=== PATIENT | male | born 1935 | race Caucasian/White ===

== ENCOUNTER 2017-12-14 05:57 | Inpatient (IN) | payer OTHER, SELFPAY ==
[2017-11-30 08:39] VITALS: BMI 24.7
[2017-12-14] VITALS (16 sets, daily range): BP systolic 111–157; BP diastolic 57–82; PULSE 58–91; RESP 10–20; TEMP 35.7–37; O2SAT 90–97; BMI 23.8
--- NOTE | 2017-12-14 | DI.RAD.S_ITS ---
PROCEDURE: XR HIP W PEL IF DONE RT 2V INDICATIONS: total right hip TECHNIQUE: AP pelvis and lateral view of the right hip acquired. COMPARISON: [facility], JULIA, XR HIP W PEL IF DONE RT 2V, 12/14/2017, 8:57. FINDINGS: Bones: Patient is status post right hip arthroplasty, with hardware components in expected positions. The hip joint appears congruent. The visualized bony structures appear intact. Moderate left hip degeneration. Soft tissues: Overlying postoperative changes are noted. Scattered vascular calcifications. No suspicious soft tissue densities. IMPRESSION: Expected postoperative appearance. Dictated by: Celso Jeffries M.D. on 12/14/2017 at 12:59 Approved by: Celso Jeffries M.D. on 12/14/2017 at 13:01
--- NOTE | 2017-12-14 | DI.ECHO.S_ITS ---
[facility]---------+ [facility] +---------+ : : [address] : [place] : : : : [id number] : : : : Phone: [phone]+ Echocardiogram Report + + :Name: SHELTON MANCERA Study Date: 12/15/2017 Height: 70 in : :[facility] Exam Location: IS Weight: 166 lb : : Gender: Male BSA: 1.9 m2 : :: 1935 Age: 82 yrs BP: 104/50 mmHg: :Reason For Study: Chest Pain : :Ordering Physician: Michael : :Hospitalist Performed By: Vannessa Meléndez : :Referring: CYNTHIA TOLEDO : + + Interpretation Summary 1) Normal left ventricular thickness, size, and systolic function (EF 55-60%). 2) The anterolateral wall, the inferior wall, and the inferolateral wall are hypokinetic. 3) Grossly, normal right ventricular size and function. 4) There is moderate posteriorly directed mitral regurgitation. 5) The right ventricular systolic pressure is estimated at 38 mmHg assuming a right atrial pressure of 3 mm Hg. 6) No prior Echo available for comparison. Procedure: A two-dimensional transthoracic echocardiogram with color flow and Doppler was performed. The study quality was technically adequate. There is no prior echocardiogram noted for this patient. The patient was unable to be repositioned due to recent hip surgery and pain. Most of the acoustic windows were suboptimal, but the best imaging was obtained from the parasternal window. The patient was in normal sinus rhythm during the exam. Left Ventricle: The left ventricle is normal in size. Left ventricular wall thickness is normal. The ejection fraction is estimated to be 55-60%. Left ventricular systolic function is normal. The anterolateral wall, the inferior wall, and the inferolateral wall are hypokinetic. Right Ventricle: The right ventricle is not well visualized. The right ventricle grossly appears normal in size with probable normal systolic function. Atria: The left atrium is moderately dilated. Right atrium not well visualized. The interatrial septum is intact with no evidence for an atrial septal defect. Mitral Valve: The mitral valve leaflets appear borderline thickened, but open well. There is mild mitral annular calcification. There is moderate mitral regurgitation. The mitral regurgitant jet is eccentrically directed. There are multiple regurgitant jets present. Aortic Valve: The aortic valve is moderately calcified. There is no aortic valve stenosis. No aortic regurgitation is present. Tricuspid Valve: The tricuspid valve is normal in structure and function. There is mild tricuspid regurgitation. The right ventricular systolic pressure is estimated at 38 mmHg assuming a right atrial pressure of 3 mm Hg. Pulmonic Valve: The pulmonic valve is not well seen, but is grossly normal. There is a trace or physiologic amount of pulmonic regurgitation. Great Vessels: The ascending aorta could not be visualized. The IVC is of normal diameter and collapses greater than 50% with a sniff. This suggests a low right atrial pressure of 3 mm Hg. Pericardium/ Pleura There is no pericardial effusion. There is no pleural effusion. MMode/2D Measurements & Calculations LVIDd: 4.8 cm LVOT diam: 2.3 cm LVIDs: 3.3 cm FS: 32.2 % IVSd: 0.95 cm LVPWd: 1.1 cm LV frances. diameter/BSA (cm/m^2): 2.5 LV sys. diameter/BSA (cm/m^2): 1.7 LA dimension: 5.9 cm IVC diam: 1.4 cm LA A2 area: 24.5 cm2 LA A4 area: 23.6 cm2 LA length (vol): 5.6 cm LA vol: 88.2 ml LA vol index: 45.7 ml/m2 Doppler Measurements & Calculations Ao V2 max: 167.4 cm/sec LVOT Max Panda: 92.1 cm/sec Ao V2 mean: 112.8 cm/sec LV V1 max P.4 mmHg Ao max P.2 mmHg LV V1 VTI: 17.8 cm Ao mean P.0 mmHg JENNIFER(I,D): 2.3 cm2 Ao V2 VTI: 33.2 cm JENNIFER(V,D): 2.4 cm2 sev ratio: 0.54 JENNIFER indexed to BSA (cm^2/m^2): 1.2 MV E max panda: 115.4 cm/sec TR max panda: 296.4 cm/sec MV A max panda: 49.4 cm/sec TR max P.1 mmHg MV E/A: 2.3 PA V2 max: 84.8 cm/sec Med Peak E' Panda: 5.9 cm/sec PA V2 mean: 59.1 cm/sec E/E' med: 19.6 PA mean P.6 mmHg Lat Peak E' Panda: 11.1 cm/sec PA pr(Accel): 19.1 mmHg E/E' lat: 10.4 E/e' average: 15.0 MV dec time: 0.16 sec Reading Physician:12:16 PM
--- NOTE | 2017-12-14 06:00 | DI.RAD.S_ITS ---
PROCEDURE: XR HIP W PEL IF DONE RT 2V INDICATIONS: intraoperative right hip TECHNIQUE: 2 view(s) of the hip acquired. COMPARISON: [facility], CR, XR HIP W PEL IF DONE RT 2V, 12/14/2017, 12:29. FINDINGS: Bones: Patient is status post a right hip arthroplasty, with hardware components in expected positions. The hip joint appears congruent. The visualized bony structures appear intact. Soft tissues: Overlying postoperative changes are noted. No suspicious soft tissue densities. IMPRESSION: Normal alignment of the preparation for closure during the process of right total hip arthroplasty. Dictated by: Cristhian Eid M.D. on 12/14/2017 at 13:04 Approved by: Cristhian Eid M.D. on 12/14/2017 at 13:05
[2017-12-14] MEDS: LACTATED RINGERS 1,000 ML 42 ML IV ×2 (06:40→11:04)
[2017-12-14] MEDS: ACETAMINOPHEN 325 MG TABLET 975 MG PO ×3 (06:51→20:34)
[2017-12-14] MEDS: PREGABALIN 75 MG CAPSULE PO (06:51)
[2017-12-14] MEDS: CELECOXIB 200 MG CAPSULE PO (06:51)
[2017-12-14] MEDS: VANCOMYCIN 1,000 MG/200 ML FROZ.PIGGY 200 MG IV (07:07)
--- NOTE | 2017-12-14 07:34 | PM.PREOP ---
Pre-operative Note Interval Note Pre-op Check: Yes History & Physical Reviewed by Physician and Yes Exam Performed Changes: No
--- NOTE | 2017-12-14 07:37 | P.OP_ITS ---
Operative Date/Time/Diagnoses Date of procedure: 12/14/17 Time of procedure: 07:59 Pre-op diagnosis: right hip oa Post-op diagnosis: same Procedure & Clinicians Procedure: right total hip Replacement anterior Same procedure as scheduled: Yes Indications: The patient has had progressively worsening right hip pain with radiographic changes consistent with arthritis. Non-operative management has failed and the patient has requested total hip replacement. The risks, benefits and alternatives to surgery were discussed with the patient prior to proceeding. Risks discussed included, but were not limited to, failure to relieve pain, leg length discrepancy, dislocation, stiffness, infection, nerve damage, deep venous thrombosis, pulmonary embolism, stroke, coma, heart attack, permanent paralysis and , as well as the potential need for eventual revision of the prosthetic. Surgeon: Kelsie Nieto Sleeve Tailor: Cley Moss Anesthesia Type: General and Spinal Operative Notes Findings: severe right hip osteoarthritis Closure Type: primary Specimen(s): none sent Implants & Drains: nieto and nephew R3 56, 25 mm single screw, neutral poly, anthology size 7 standard offset, +0 Estimated Blood Loss (mL): 300 Blood products transfused: none Procedure in detail: The patient was brought to the operating room. Patient was carefully positioned in the supine position. Time-out was performed and antibiotics were given. Anesthesia was induced. She was positioned in the on the table in order to allow hyperextension of the hip. Bilateral lower extremities were prepped and draped in a standard sterile fashion. An anterior incision was made 1 fingerbreadth lateral to the anterior superior iliac spine and extended distally towards the greater trochanter. Dissection was carried out through skin and subcutaneous tissues. The skin and subcutaneous tissues were carefully injected with Marcaine with epi. Superficial hemostasis was achieved. The fascia over the tensor fascia ekta was defined and incised with a knife. Two Allis clamps were used to grasp the fascia. Tensor fascia ekta was retracted laterally. A gelpi retractor was placed. Dissection was carried out down along the neck. The circumflex vessels were carefully identified and cauterized with the Aqua Mantis. There was good visualization of the femoral neck. A Cobra was placed superior to the neck and the gluteus fibers were carefully stripped from that superior aspect of the capsule. A 2nd retractor was placed along the inferior aspect of the neck. The rectus insertion along the capsule was released. A 3rd retractor that was then gently placed over the rim of the acetabulum under the rectus. Capsule was carefully incised and released from the intertrochanteric line circumferentially superior to the mid sagittal line and inferiorly to the mid sagittal line until the lesser trochanter was palpable. A tag stitch was placed both in the superior and inferior limb of the capsular insertion. Along the acetabulum capsule was also released up to the mid sagittal 12:00 position. Portion of the labrum was resected. A saw was used to perform an osteotomy at the level of the intertrochanteric line and the junction of the superior femoral neck leaving approximately 1 finger breath of residual inferior neck above the lesser trochanter. A 2nd cut was made along the femoral neck at the base of the head and a napkin ring of neck was removed. Corkscrew was placed in the femoral head and the head was removed without difficulty. Retractors were then repositioned around the acetabulum. Residual labrum was resected and additional osteophytes were removed. A Reamer that was 4 mm below the templated size was placed by hand in the acetabulum and it was reamed to centralize the acetabulum. Was then reamed up to 1 under the templated size fluoroscopy was brought in to confirm the position of the reaming and depth of reaming. I reamed 1 under the anticipated size and touch the rim with line to line reaming. A trial cup was placed and noted that it was appropriately sized and fluoroscopy confirmed position and depth. The component was open and inserted without difficulty fluoroscopic imaging was used to confirm that the cup had been adequately seated and was well positioned. A single screw was used to further stabilize the cup. Neutral poly liner was placed. The cup was tested and noted to be stable. Attention was then directed to the femur. The femur was gently hyperextended additional capsular release was performed as needed in order to allow adequate visualization of the proximal femur with elevation of the femur. Patient was placed in a hyperextended slightly abducted position with maximum external rotation. Box osteotome was used to check for any residual neck as well as sclerotic bone along the trochanter. Rugby pepper was placed in the femur. Additional broaching was performed. Canal finer was used to determine the alignment of the canal and position. Size 1 broach was placed. The canal was then appropriately broached up to the templated size as long as there was adequate stability of the broach and serial advancement of the broach without excessive impingement. Specific attention was directed at avoiding varus attempting to direct the distal aspect of the approach more anteriorly and avoiding excessive anteversion. Trial reduction showed acceptable range of motion, good stability, no posterior impingement, christianity of leg length and appropriate lateral shuck. I also hyperflexed the hip and checked that there was no impingement anteriorly and there was good stability with flexion, abduction and internal rotation. Final neutral poly was placed without difficulty. Marcaine and Exparel were injected. The stem was placed without difficulty. Repeat trial reduction and x -ray showed acceptable overall position, length, and no evidence of the femoral fracture. Final head was placed. Wound was meticulously irrigated with normal saline. The hip was reduced and additional Exparel and Marcaine were injected. The capsule was closed with interrupted black braided nylon. The fascia of the tensor was closed with interrupted and running Vicryl. No drain was placed. Any tensor fascia ekta muscle that appeared to be contused or injured which was a minimal amount was carefully resected. Capsule around the tensor was injected with Exparel and Marcaine. The skin was closed with barbed stitches for the subcutaneous tissue and skin. We also used surgical glue. The wound was dressed sterilely. Brief Betadine soak was also used and was meticulously irrigated with normal saline. Patient was transferred to recovery room in satisfactory condition. Complications: none Condition: stable Disposition: Acute Care Plan for aftercare: The patient will be maintained on a standard total hip replacement protocol with weight bearing as tolerated and anterior hip precautions. The patient will receive aspirin and sequential compression devices for DVT prophylaxis. The patient will be discharged home when safe for the home environment.
[2017-12-14] MEDS: CEFAZOLIN 2 GM/100 ML FROZ.PIGGY IV ×2 (08:30→16:05)
[2017-12-14] MEDS: LIDOCAINE 1% W/EPI INJ 1 ML SUBCUT (08:52)
--- NOTE | 2017-12-14 09:08 | SUR.OPER ---
Supine, head on pillow, torso on pink pad positioner. Iliac crest at flex of foot end of table. Gel roll under operative hip. Both arms secured on arm boards <90 degrees abduction.
[2017-12-14] MEDS: BUPIVACAINE 0.25% W/ EPI VIAL 50 ML INJ (09:17)
[2017-12-14] MEDS: BUPIVACAINE LIPOSOME 266 MG/20 ML VIAL INJ (09:18)
[2017-12-14] MEDS: POVIDONE-IODINE 15 ML, SODIUM CHLORIDE 0.9% 250 ML TOP (09:18)
--- NOTE | 2017-12-14 12:18 | SUR.PHASEI ---
oral airway out at 1216
[2017-12-14] MEDS: LACTATED RINGERS 1,000 ML 125 ML IV (13:36)
--- NOTE | 2017-12-14 14:11 | PC.NURSE ---
Pt to floor after surgery. Denies pain in hip area, drinking apple juice from carton. Began to experience chest pain, pressure at 7/10. Appeared in distress but no diaphoresis. O2 sats = 88% on RA, then 94% on 2L. Surgeon and MD contacted. EKG done. Pt began to feel better after about 45 minutes. Spouse present. Now plan to give GI Cocktail. Pt now calm.
[2017-12-14] MEDS: MAG HYDROX/ALUMINUM/SIMETH SUS 20 ML, LIDOCAINE VISCOUS 2% 15 ML PO ×2 (14:22→22:49)
[2017-12-14 15:05] LABS: Creatine Kinase 186 U/L (55-170)
[2017-12-14 15:16] LABS: Troponin I 0.039 ng/mL (0.01-0.034)
[2017-12-14 15:20] LABS: Creatine Kinase MB 1.82 ng/mL (<2.37)
--- NOTE | 2017-12-14 15:55 | PT.IIE ---
Current Diagnoses Unilateral primary osteoarthritis, right hip (12/14/17) Surgery Performed Operation Date: 12/14/17 07:45 Actual Procedures p Total Hip Arthroplasty/Anterior Approach(Right) - Kelsie Mejia MD Surgical History (Last Updated 11/30/17 @ 09:13 by Hyun Sutton, RN) History of vasectomy (Acute) Hx of hand surgery (Acute) Hx of tonsillectomy (Acute) Medical History (Last Updated 11/30/17 @ 09:13 by Hyun Sutton RN) BCC (basal cell carcinoma of skin) (Acute) Borderline hypertension (Acute) Easy bruisability (Acute) Fecal incontinence (Acute) Melanoma in situ of back (Acute) Physical Therapy Inpatient Evaluation/Re-Eval M1 PT/OT-IP Prior Functional Status Start: 12/14/17 15:59 Freq: NEEDED Status: Active Protocol: Document 12/14/17 15:55 MDD (Rec: 12/14/17 16:10 MDD [id number]) Medical Review Prior Functional Status Medical History Reviewed Yes Communication normal Mobility and Gait independent with no AD Activities of Daily Living and IADL's independent Social History Household Members spouse Living Arrangements House Number of Floors (Floors) One Floor Number of Stairs To Enter/Railing? 2 steps to enter (no railing but he can hold onto the side of the house). 2 additional stairs down to get to family room. Home Environment Standard Height Toilet Home Equipment Front Wheel Walker Straight Cane Raised Toilet Seat Without Armrests Shower Seat with Backrest Employment Status Self-Employed Additional Social History Comment Pt works as a salesman and travels via car on the [facility] [place]. He lives with his , Yancy, on [address] . M2 PT-IP Current Condition Start: 12/14/17 15:59 Freq: NEEDED Status: Active Protocol: Document 12/14/17 15:55 MDD (Rec: 12/14/17 16:10 MDD [id number]) Physical Therapy Current Condition Current Condition Evaluation Date 12/14/17 Treatment Diagnosis s/p R ANNETTE Onset Date 12/14/17 Precautions Anterior Hip Precautions No Hip Extension No Hip External Rotation Weight Bearing Status Weight Bearing Status Weight Bear as Tolerated M3 PT-IP Subjective Start: 12/14/17 15:59 Freq: NEEDED Status: Active Protocol: Document 12/14/17 15:55 MDD (Rec: 12/14/17 16:10 [facility] [id number]) Subjective Physical Therapy Visit Type Type Initial Evaluation Visit Start Time 15:15 Visit Stop Time 15:55 Total Visit Minutes 40 Notes supine BP: 127/68 mm Hg seated EOB:131/63 mm Hg after activity: 133/77 mm Hg Pt on 3L/min supplemental O2 at rest, sats at 97%. Removed O2 with no decrease in oxygen saturation. No drop with activity on room air. Physical Therapy Visit Comments Patient Comments Pt reports feeling a bit worried earlier with his chest pain, but notes it feels much better now. Therapy Pain Assessment Pain When Pain Assessed At Rest Pain Present Pain Present Pain Reported Location Chest Intensity 2 Scale Used Numeric (1 - 10) Description Dull Right Hip Intensity 0 M4 PT-IP Mobility and Gait Start: 12/14/17 15:59 Freq: NEEDED Status: Active Protocol: Document 12/14/17 15:55 MDD (Rec: 12/14/17 16:10 [facility] [id number]) PT-Bed Mobility Assessment Rolling Type of Rolling Roll to Right Level of Assist Standby Assistance Supine to Sit Supine to Sit Standby Assistance Scooting Scooting to Edge of Bed Independent PT-Transfer Assessment Sit to and From Stand Sit to and from Stand Contact Guard Assistance Equipment Transfer Assistive Device Gait Belt Front Wheeled Walker Transfers Transfer Destination Chair Transfer Ability Level of Assist Standby Assistance Gait Assessment Gait Gait Assistance Required: Standby Assistance Contact Guard Assist Distance (Feet) (feet) 90 Able to Maintain Weight Bearing Status Yes During Gait Assistive Devices Assistive Device Gait Belt Front Wheeled Walker Gait Deviations General Gait Pattern Antalgic Decreased Stride Length Factors Limiting Gait Function Factors Limiting Gait Function Limited Range of Motion Pain Comments Gait Comments Pt demonstrates safety with gait using FWW, requires small cues for maintaining hip precautions (ie smaller steps with L LE and avoiding R hip ER while turning). PT-Balance Assessment Sitting Balance and Reactions Static Sitting Balance Ability Normal Dynamic Sitting Balance Ability Normal Standing Balance and Reactions Static Standing Balance Ability Good Dynamic Standing Balance Ability Good M5 PT-IP Objective Assessments Start: 12/14/17 15:59 Freq: NEEDED Status: Active Protocol: Document 12/14/17 15:55 MDD (Rec: 12/14/17 16:10 [facility] [id number]) Orientation Orientation/Cognition Level of Alertness Alert Orientation Name Age Birthday Month Date Year Day of Week Place Situation Language Function Ability No Deficits Noted Safety Awareness Understands Safety Issues Memory Description No Deficits Noted Gross Range of Motion Lower Extremity ROM Assessment Within Functional Limits Strength Lower Extremity Strength Assessment Within Functional Limits Coordination Assessment Gross Coordination Gross Coordination WNL Sensation Assessment Sensation Gross Sensation WNL Light Touch Intact M6 PT-IP Treatment Start: 12/14/17 15:59 Freq: NEEDED Status: Active Protocol: Document 12/14/17 15:55 MDD (Rec: 12/14/17 16:10 MDD [id number]) Physical Therapy Treatment Education Education Provided Precautions Weight Bearing Status Post-Op Packet Safety M7 PT-IP Assessment and Plan Start: 12/14/17 15:59 Freq: NEEDED Status: Active Protocol: Document 12/14/17 15:55 MDD (Rec: 12/14/17 16:10 MDD [id number]) PT Summary Assessment and Plan Potential Rehabilitation Potential Excellent Status of Condition at Evaluation Stable Summary Impairments ROM Bed Mobility Transfers Gait Activity Tolerance Progress Towards Goals Progressing Toward Goals Assessment Summary On examination, pt demonstrates excellent LE strength. He was able to perform bed mobility with SBA and transfers with CGA using his FWW. Pt will need to practice stair training and continue with bed mobility and gait training prior to d/c home. Goals Bed Mobility Goal Independent Transfer Goal Independent Gait Goal Independent Front Wheel Walker Gait Distance 100 Other Goals Ascend/descend 2 steps with no handrail (single point cane) Days to Meet Goals 2 Frequency of Treatment Frequency Of Treatment Twice a Day Treatment Plan Physical Therapy Treatment Plan Bed Mobility Training Transfer Training Gait Training Therapeutic Exercise Post Op Education Recommendations To Nursing Amount of Assist Needed 1 Person Assist Discharge Recommendations PT Discharge Recommendations Home with Assistance
--- NOTE | 2017-12-14 16:10 | PC.NURSE ---
Pt awake and alert in bed. P.T. in to mobilize pt and pt in agreement. Ambulatory on room air in hallway with P.T. using walker. Now returns to recliner per P.T. Continuous pulse oximeter in place. Room air 94%. Pt denies chest pain. No chest pain. States sensation to throat returning s/p GI cocktail. Denies nausea. Denies pain. Palpable posterior tibialis pulses x 2. Equally warm and pink extremities. Ice to right hip. Aquacel dressing to right anterior hip is dry and intact. Dr. Barnes checks in by telephone and Dr. Mejia in to see patient and now R.T. in to see patient.
[2017-12-14 17:52] LABS: Creatine Kinase 238 U/L (55-170)
[2017-12-14 18:08] LABS: CKMB % Relative Index 2.4 % (1.5-5.0); Creatine Kinase MB 5.73 ng/mL (<2.37)
[2017-12-14 18:54] LABS: Troponin I 0.297 ng/mL (0.01-0.034)
--- NOTE | 2017-12-14 19:07 | PC.NURSE ---
Mahad Duvall in lab notifies this adjusto writer operator by telephone of pt's critical troponin at this hour 0.297. Pt remains up in recliner pain free alert and conversant. Dr. Wall in house and notified immediately. to enter orders and requested this adjusto writer operator notify Dr. Mejia via telephone. Tele placed as per MD directive.
--- NOTE | 2017-12-14 19:08 | PM.CN ---
History of Present Illness Date Patient Seen: 12/14/17 Time Patient Seen: 19:09 Chief complaint: [id number] Reason for consult: Patient experiencing chest pain and perioperative setting Requesting provider: Kelsie Mejia Narrative: Patient is a very pleasant 82 years of age male who had chest pain returning from surgical procedure. The initial troponin level was negative. The initial EKG was nonspecific. A GI cocktail was given to the patient at that time and he appeared to have sufficient relief. I requested though few hours later by repeat troponin to be done. Whereas the 1st troponin was 0.039 the 2nd troponin was 0.297. In view of such I requested patient to be placed on telemetry. Patient already on aspirin based product. I added on metoprolol tartrate at 25 mg b.i.d. As an additional cardioprotective measure. Since patient had response to the GI cocktail, or sort appeared, I also added on Protonix 40 mg b.i.d.. Please note the 2nd most common cause of chest pain once cardiac causes were ruled out would be gastrointestinal with GERD and esophageal spasm. I have requested for repeat troponin level to be done in a.m. with a repeat ECG in a.m.. I also requested a echocardiogram 2D to be done tomorrow in a.m.. Echo can look for regional wall motion abnormality and suggest there is Ongoing Regional ischemic disease. Patient to be monitored carefully through the night. PFSH Medical History BCC (basal cell carcinoma of skin) (Acute) Borderline hypertension (Acute) Easy bruisability (Acute) Fecal incontinence (Acute) Melanoma in situ of back (Acute) Surgical History History of vasectomy (Acute) Hx of hand surgery (Acute) Hx of tonsillectomy (Acute) Social History household members: spouse Smoking Status: Former smoker alcohol intake: current Meds Home Medications Medication Instructions Recorded Confirmed Type acetaminophen [Tylenol Arthritis 650 mg PO Q8H PRN 11/30/17 12/14/17 History Pain] aspirin 81 mg PO DAILY 11/30/17 12/14/17 History ascorbic acid (vitamin C) [Vitamin 500 mg PO DAILY 12/14/17 12/14/17 History C] multivitamin with minerals 1 tab PO DAILY 12/14/17 12/14/17 History [Multiple Vitamin-Minerals] omega 0-ivb-van-fish oil [Fish Oil] 1,000 mg PO DAILY 12/14/17 12/14/17 History Allergies Allergy/AdvReac Type Severity Reaction Status Date / Time No Known Drug Allergies Allergy Verified 12/14/17 07:30 Exam Vital Signs (past 8 hours): - 12/14/17 12:02 12/14/17 12:07 12/14/17 12:17 Temperature 97.0 F L Pulse Rate 63 61 65 Respiratory Rate 13 12 10 L Blood Pressure 118/66 115/63 115/58 L Pulse Oximetry 95 94 95 12/14/17 12:22 12/14/17 12:42 12/14/17 12:55 Temperature 97.1 F L 98.4 F Pulse Rate 67 74 73 Respiratory Rate 12 10 L 16 Blood Pressure 117/58 L 127/72 112/66 Pulse Oximetry 94 93 90 L 12/14/17 13:55 12/14/17 14:55 12/14/17 15:55 Temperature 98.1 F 98.6 F 96.3 F L Pulse Rate 62 63 60 Respiratory Rate 16 18 16 Blood Pressure 131/75 132/72 133/77 Pulse Oximetry 95 96 95 Oxygen Delivery Method Room Air Objective Labs Labs: Laboratory Results - last 24 hr 12/14/17 12/14/17 14:40 17:10 Total Creatine Kinase 186 H 238 H CK-MB (CK-2) 1.82 5.73 H D CK-MB (CK-2) Rel Index 1.0 L 2.4 Troponin I 0.039 H 0.297 H*
--- NOTE | 2017-12-14 19:19 | PC.NURSE ---
Discussed with Dr. Mejia via telephone pt's bump in troponin this evening. Also informed Dr. Mejia informed Dr. Wall of this lab value as well and Dr. Wall to implore cardioprotective measures. These were reviewed with Dr. Mejia.
--- NOTE | 2017-12-14 19:42 | PC.NURSE ---
Per Dr. Wall, no activity restrictions with pt's elevated troponin. Pt into bathroom to attempt void. Tele in place and ICU informed.
--- NOTE | 2017-12-14 20:18 | PC.NURSE ---
Bladder scanned for 812 cc's and pt unable to void after ambulation and sitting on toilet. I and O cathed per Mallory davis RN.
--- NOTE | 2017-12-14 20:24 | PC.NURSE ---
When asked directly, pt does report periodic short-lived chest pain, but currently denies any and all discomfort. Requested pt alert staff when chest pain occurs. Pt verbalizes understanding.
[2017-12-14] MEDS: METOPROLOL 25 MG TABLET PO (20:34)
[2017-12-14] MEDS: PANTOPRAZOLE 40 MG TABLET PO (20:34)
[2017-12-14] MEDS: ASPIRIN EC 81 MG TABLET PO (20:34)
[2017-12-14] MEDS: DOCUSATE 100 MG CAPSULE PO (20:34)
[2017-12-14] MEDS: NITROGLYCERIN 0.4 MG SL TAB SL (21:00)
[2017-12-14 21:32] LABS: Creatine Kinase 376 U/L (55-170)
--- NOTE | 2017-12-14 21:34 | PC.NURSE ---
Pt took hs meds and ate sandwich as per request. Reports to REGIONAL MERCHANDISING MANAGER now experiencing chest pain. Vital signs taken and R.T. in to perform stat EKG. This underwriter solicitation director entered pt's room and pt is clutching chest. Dr. Wall summoned to bedside and reviewing pt's EKG. Administered 0.4 SL nitro as per MD's verbal order. Lab in to draw stat troponin and CK. Pt reports immediate improvement in chest pain following nitro. EKG repeated as per MD's verbal orders. Pt now reports pain entirely absent. 02 sats 88% on room air. This was called to the attention of R.Flora.Radha and Dr. Wall by this underwriter solicitation director. Placed pt on 02 @ 3L per nc and sats to 93%. Pt remains awake, alert and chest pain free.
[2017-12-14 21:47] LABS: CKMB % Relative Index 4.4 % (1.5-5.0)
--- NOTE | 2017-12-14 22:02 | PC.NURSE ---
Pt's troponin now reported as 1.180. Dr. Mejia was contacted by telephone with this value as well as pt's earlier c/o chest pain with Dr. Wall attending @ the bedside. Dr. Mejia was informed of Dr. Trevizo's impressions/recommendations of posterior RI and recommendation for heparin drip with eventual (not emergent) transfer to [facility] for angiogram. Dr. Mejia provided with Dr. Trevizo's (client representative) phone number and states will contact directly. Pt transferred to ICU upon [facility] Snow's recommendation for careful monitoring. Inquired of Dr. Mejia if would like Dr. Walker (hospitalist overnight) notified and Dr. Mejia to make decision and let this mortgage or loan underwriter know how to proceed.
--- NOTE | 2017-12-14 22:22 | PC.NURSE ---
Pt now in ICU and report given to SANDRA Adamson. Pt's spouse, Yancy, was notified by telephone of pt's change in status and transfer to ICU. Dr. Mejia returned this casualty underwriter's call and states spoke with Dr. Trevizo (pt's previous EKG's were faxed to Dr. Trevizo per Dr. Wall after Dr. Wall's phone conversation with this leak gang supervisor). Per Dr. Mejia, pt to have 5000 units subcutanous heparin now and dc nitropaste. Other orders written and being entered by rose grading supervisor, Diane, at this time. Per Dr. Roberto MD to contact Dr. Walker directly (hospitalist overnight) and Dr. Walker's cell phone number provided to Dr. Mejia.
[2017-12-14] MEDS: HEPARIN 5,000 UNIT/ML VIAL 5000 UNIT SUBCUT (22:47)
--- NOTE | 2017-12-14 22:55 | PC.NURSE ---
Addendum entered by Snow Duhnam R.N. 12/14/17 23:04: O2 sats down to 90% on 3 L. O2 increased to 4L. One 0.4 mg ntg given at 22:42. 22:53- O2 sats 87%. O2 increased to 4L. RLL crackles. Dim bilateral bases. Pt denies SOB. Chest pain is resolved. Original Note: transfer to ICU note pt received from Acute care. Pt on 3L O2. Pt had episode of chest pain midsternal to slightly left of sternum, nonradiating, no SOB, no dizziness. Pt rated pain 3/10
[2017-12-15] MEDS: CEFAZOLIN 2 GM/100 ML FROZ.PIGGY IV (00:01)
[2017-12-15 00:37] VITALS: BP 111/57; PULSE 73; RESP 25; TEMP 35.9; O2SAT 96
[2017-12-15 00:46] LABS: Creatine Kinase 398 U/L (55-170)
[2017-12-15 01:36] LABS: CKMB % Relative Index 6.1 % (1.5-5.0)
[2017-12-15] MEDS: ONDANSETRON 4 MG/2 ML INJ IV ×2 (01:43→04:55)
[2017-12-15 04:30] VITALS: BP 129/70; PULSE 76; RESP 17; TEMP 36.4; O2SAT 96
[2017-12-15] MEDS: PANTOPRAZOLE 40 MG TABLET PO (04:55)
[2017-12-15 07:56] VITALS: BP 104/61; PULSE 64; RESP 17; TEMP 36.7; O2SAT 92
[2017-12-15 08:38] LABS: Hematocrit 41.9 % (41-53); Hemoglobin 13.9 g/dL (13.5-17.5)
[2017-12-15 08:51] LABS: Creatine Kinase 620 U/L (55-170)
[2017-12-15 09:00] VITALS: O2SAT 94
[2017-12-15 09:16] LABS: CKMB % Relative Index 8.6 % (1.5-5.0)
--- NOTE | 2017-12-15 09:18 | P.PN_ITS ---
Subjective Date Patient Seen: 12/15/17 Interval history: Patient seen at bedside with Dr. Mejia status post right anterior total hip replacement. Patient is postop day 1. He had chest pain with ST elevations on EKG postoperatively and has been in the ICU for monitoring. Dr. Walker from [facility] cardiology was called last night regarding this patient and his recommendation was to monitor in our hospital and not transfer as an patient is not able to be properly anticoagulated for an angiogram at this time. Hospitalist today recommends transferring for monitoring at a hospital with the ability to do an angiogram. He is looking at transferring the patient to [facility] in [place] as the patient has his PCP in [place]. He denies any chest pain at this time. He denies any hip pain or calf pain. He has been walking with the aid of a walker. Exam Vital Signs (past 8 hours): - 12/15/17 04:30 12/15/17 07:56 Temperature 97.6 F 98.0 F Pulse Rate 76 64 Respiratory Rate 17 17 Blood Pressure 129/70 104/61 Pulse Oximetry 96 92 Oxygen Delivery Method Nasal Cannula Oxygen Flow Rate 4 Narrative Exam Narrative: Patient is well-developed well-nourished in no acute distress. Patient is alert and oriented x3. Examination right hip incision is clean dry and intact with an Aquacel dressing in place. No noticeable discharge on the dressing. Minimal swelling around the hip. Range of motion of the knee and ankle are fully intact. Calf is soft and compressible. Objective Labs Result Diagrams: 12/15/17 08:07 Labs: Laboratory Results - last 24 hr 12/14/17 12/14/17 12/14/17 14:40 17:10 21:14 Hgb Hct Total Creatine Kinase 186 H 238 H 376 H CK-MB (CK-2) 1.82 5.73 H D 16.70 H D CK-MB (CK-2) Rel Index 1.0 L 2.4 4.4 Troponin I 0.039 H 0.297 H* 1.180 H* 12/15/17 12/15/17 12/15/17 00:30 08:07 08:07 Hgb 13.9 Hct 41.9 Total Creatine Kinase 398 H 620 H D CK-MB (CK-2) 24.40 H D CK-MB (CK-2) Rel Index 6.1 H* Troponin I 1.970 H* Assessment & Plan Post-op Postoperative Procedures Operation Date: 12/14/17 07:45 Actual Procedures Side Surgeon p Total Hip Arthroplasty/Anterior Approach Right Kelsie Mejia MD Patient should continue moving and as much as possible regarding his cardiac condition. Follow recommendations of the hospitalist to transfer the patient. Patient to follow up with the office at his previously scheduled appointment.
[2017-12-15] MEDS: SODIUM CHLORIDE 0.9% 1,000 ML 100 ML IV (09:21)
[2017-12-15] MEDS: ASPIRIN EC 81 MG TABLET PO (09:22)
[2017-12-15] MEDS: DOCUSATE 100 MG CAPSULE PO (09:23)
[2017-12-15] MEDS: NITROGLYCERIN 0.4 MG SL TAB SL ×2 (09:43→10:50)
[2017-12-15] MEDS: MORPHINE 2 MG/ML INJ IV (10:07)
[2017-12-15 10:08] LABS: Alanine Aminotransferase 20 IU/L (21-72); Albumin 3.9 g/dL (3.5-5.0); Albumin Globulin Ratio 1.6 (1.0-2.8); Alkaline Phosphatase 48 U/L (38-126); Aspartate Aminotransferase 92 IU/L (17-59); BUN Creatinine Ratio 22.2 (6-22); Bilirubin Total 0.7 mg/dL (0.2-1.3); Blood Urea Nitrogen 20 mg/dL (9-20); Carbon Dioxide 25 mmol/L (22-32); Chloride 107 mmol/L (98-107); Estimated Glomerular Filt Rate > 60.0 mL/min (>60); Globulin 2.5 g/dL (1.7-4.1); Glucose 121 mg/dL (80-110); HEMOLYSIS 44 (0-50); Potassium 4.4 mmol/L (3.4-5.1); Sodium 142 mmol/L (137-145); Total Protein 6.4 g/dL (6.3-8.2)
--- NOTE | 2017-12-15 10:08 | PC.NURSE ---
pt reported mid sternal chest pressure 7 out of 10 at 0935 while sitting in chair. states, it started in the bathroom. pt back to bed; does well with hip precautions, independent back into bed with SBA. BP 100/38, pulse 69. pulse earlier 48-55; Dr. Sandoval notified and metoprolol held. EKG done. nitro 1 SL given at 0943. 0948 100/49, 63; CP 5, Nitro [address] Sandoval notified, morphine 2mg IV given. CP remains at 2. 1020 Echo being done.
[2017-12-15 10:50] VITALS: BP 100/49
[2017-12-15] MEDS: METOPROLOL 25 MG TABLET PO (11:04)
--- NOTE | 2017-12-15 11:24 | PM.DS.1 ---
History of Present Illness Chief complaint: [id number] Discharge Providers Date of admission: 12/14/17 05:57 Consults: 12/14/17 12:42 Consult to Discharge Planning Routine Comment: Consult to Physical Therapy Evaluate & Treat Comment: anterior Physician Instructions: post op ANNETTE protocol Consult to Respiratory Therapy Evaluate & Treat Comment: Physician Instructions: Evaluate and treat 12/14/17 13:36 Consult to Physician Routine Comment: Consulting Provider: [facility] Reason for consultation: chest pain Has provider been notified: Yes Discharge provider: Hussain Whyte MD Summary Discharge Diagnosis: Admitting diagnosis 1. Reason for transfer 1. Acute coronary syndrome Hospital Course: The patient was admitted to the hospital for his elective right THR. Postoperatively in the PACU he developed chest pain. EKG revealed ischemic appearing changes in V2 V3 V4. Also his troponins have been consistently increasing since his original complaint of chest pain. This morning his chest pain had resolved only to return. Because of his acute coronary syndrome it was felt that he should be transferred for further evaluation and management. Dr. Meneses of Cardiology at [place] has been kind enough to accept. The patient is being therefore transferred for further management of his acute coronary syndrome Status at Discharge Cognitive/behavioral status at discharge: THE PATIENT IS COGNITIVELY INTACT AWAKE ALERT ORIENTED X3 WITH SLIGHTLY ANXIOUS ABOUT HIS TRANSFER Functional status at discharge: bed bound Time Spent with Patient Greater than 30 minutes Exam Vital Signs (past 8 hours): - 12/15/17 04:30 12/15/17 07:56 12/15/17 09:00 Temperature 97.6 F 98.0 F Pulse Rate 76 64 Respiratory Rate 17 17 Blood Pressure 129/70 104/61 Pulse Oximetry 96 92 94 12/15/17 10:50 Temperature Pulse Rate Respiratory Rate Blood Pressure 100/49 L Pulse Oximetry Oxygen Delivery Method Nasal Cannula Oxygen Flow Rate 4 Narrative Exam Narrative: GENERAL NAD HEENT NORMOCEPHALIC ATRAUMATIC EXTRAOCULAR MOVEMENTS INTACT PUPILS EQUAL ROUND REACTIVE FUNDI NOT VISUALIZED CLEAR NONICTERIC NECK IS SUPPLE WITHOUT THYROMEGALY BRUITS OR JUGULAR VENOUS DISTENTION RESPIRATORY CLEAR TO AUSCULTATION CARDIOVASCULAR REGULAR RHYTHM S1-S2 WAS NORMAL THERE ARE NO ILLNESSES RUBS MURMURS GALLOPS PRESENT ABDOMEN BENIGN BOWEL SOUNDS ACTIVE EXTREMITIES BANDAGE LATERAL UPPER LEG SECONDARY TO RECENT THR. BANDAGES CLEAN DRY AND INTACT NEUROLOGIC GROSSLY PHYSIOLOGIC PSYCHIATRIC SLIGHTLY ANXIOUS. HE IS AWAKE ALERT ORIENTED X3 Objective Labs Result Diagrams: 12/15/17 08:07 12/15/17 08:07 Labs: Laboratory Results - last 24 hr 12/14/17 12/14/17 12/14/17 14:40 17:10 21:14 Hgb Hct Sodium Potassium Chloride Carbon Dioxide BUN Creatinine Estimated GFR BUN/Creatinine Ratio Glucose Calcium Total Bilirubin AST ALT Alkaline Phosphatase Total Creatine Kinase 186 H 238 H 376 H CK-MB (CK-2) 1.82 5.73 H D 16.70 H D CK-MB (CK-2) Rel Index 1.0 L 2.4 4.4 Troponin I 0.039 H 0.297 H* 1.180 H* Total Protein Albumin Globulin Albumin/Globulin Ratio 12/15/17 12/15/17 12/15/17 00:30 08:07 08:07 Hgb 13.9 Hct 41.9 Sodium Potassium Chloride Carbon Dioxide BUN Creatinine Estimated GFR BUN/Creatinine Ratio Glucose Calcium Total Bilirubin AST ALT Alkaline Phosphatase Total Creatine Kinase 398 H 620 H D CK-MB (CK-2) 24.40 H D 53.50 H D CK-MB (CK-2) Rel Index 6.1 H* 8.6 H* Troponin I 1.970 H* 8.710 H* Total Protein Albumin Globulin Albumin/Globulin Ratio 12/15/17 08:07 Hgb Hct Sodium 142 Potassium 4.4 Chloride 107 Carbon Dioxide 25 BUN 20 Creatinine 0.90 Estimated GFR > 60.0 BUN/Creatinine Ratio 22.2 H Glucose 121 H Calcium 9.0 Total Bilirubin 0.7 AST 92 H ALT 20 L Alkaline Phosphatase 48 Total Creatine Kinase CK-MB (CK-2) CK-MB (CK-2) Rel Index Troponin I Total Protein 6.4 Albumin 3.9 Globulin 2.5 Albumin/Globulin Ratio 1.6 Discharge Plan Discharge Plan Patient Disposition: [facility] Transfer to: [facility] Other facility: [facility] Under care of provider: DR. MEDINA OF CARDIOLOGY Discharge Med Rec/Prescriptions Prescriptions: No Action aspirin 81 mg Tablet,Delayed Release (Dr/Ec) 81 mg PO DAILY RF: 0 acetaminophen [Tylenol Arthritis Pain] 650 mg Tablet Extended Release 650 mg PO Q8H PRN (Reason: pain) RF: 0 ascorbic acid (vitamin C) [Vitamin C] 500 mg Tablet 500 mg PO DAILY RF: 0 multivitamin with minerals [Multiple Vitamin-Minerals] Tablet 1 tab PO DAILY RF: 0 omega 1-obb-wqi-fish oil [Fish Oil] 1,000 mg (120 mg-180 mg) Capsule 1,000 mg PO DAILY RF: 0 Provider Discharge Instructions Diet: Low-sodium Liquid consistency: Normal/Thin Food texture: Regular Activity: BED REST Discharge Data Attending Provider: Kelsie Mejia Admit Date/Time: 12/14/17 05:57
--- NOTE | 2017-12-15 11:53 | PC.NURSE ---
pt transfered to [facility] via [facility]. Report given to Paris FLORES. Nitro paste 1 inch applied and CP remains at 2.
--- NOTE | 2017-12-15 11:57 | PT.IPTN ---
Current Diagnoses Unilateral primary osteoarthritis, right hip (12/14/17) Surgery Performed Operation Date: 12/14/17 07:45 Actual Procedures p Total Hip Arthroplasty/Anterior Approach(Right) - Kelsie Mejia MD Physical Therapy Treatment Note M2 PT-IP Current Condition Start: 12/14/17 15:59 Freq: NEEDED Status: Active Protocol: Document 12/14/17 15:55 MDD (Rec: 12/14/17 16:10 MDD [id number]) Physical Therapy Current Condition Current Condition Evaluation Date 12/14/17 Treatment Diagnosis s/p R ANNETTE Onset Date 12/14/17 Precautions Anterior Hip Precautions No Hip Extension No Hip External Rotation Weight Bearing Status Weight Bearing Status Weight Bear as Tolerated M3 PT-IP Subjective Start: 12/14/17 15:59 Freq: NEEDED Status: Active Protocol: Document 12/15/17 11:56 MDD (Rec: 12/15/17 11:57 MDD [id number]) Subjective Physical Therapy Visit Type Type Patient Unavailable Notes Attempted to see pt at 9:13 am , nursing asked to hold mobility as he is being transferred to [place] later this morning. Reviewed list of outpatient PT clinics and hip precautions with pt.
--- NOTE | 2017-12-15 12:05 | PC.NURSE ---
report given to parker. pt discharged and informed.
== END 2017-12-15 12:07 | disposition short-term general hospital (02) | DRG 469 ==
LOC: AC 15:42 → ICU 22:30
PROVIDERS: Internal Medicine; Admitting Provider Orthopaedic Surgery; Visit Provider Orthopaedic Surgery
PROC: 0SR901A Replacement of Right Hip Joint with Metal Synthetic Substitute, Uncemented, Open Approach (ICD-10-PCS; CPT 27130; principal; 2017-12-14 07:45)
DX: M16.11 Unilateral primary osteoarthritis, right hip (principal); I21.4 Non-ST elevation (NSTEMI) myocardial infarction; I10 Essential (primary) hypertension; E78.5 Hyperlipidemia, unspecified; K21.9 Gastro-esophageal reflux disease without esophagitis
CPT/HCPCS: 36415; 73502; 76001; 80053; 82550; 82553; 84484; 85014; 85018; 93005; 93010; 93306; 97161; 97530; C1776; C9290; J0171; J0690; J1100; J1644; J2250; J2270; J2274; J2405; J2704; J3010; J3370